=== PATIENT | female | born 1975 | race African-American/Black ===

== ENCOUNTER 2019-04-24 10:17 | Emergency (ER) | payer OTHER ==
[~2019-04-24] VITALS: Ht 162.6 cm; Wt 90.7 kg
[2019-04-24 10:48] LABS: ABSOLUTE NEUTROPHILS 5.2 thou/uL (1.4-8.2); BASOPHILS 0.3 % (0.0-2.0); EOSINOPHILS 1.6 % (0.0-3.0); HEMOGLOBIN 12.9 gm/dL (12.0-15.0); LYMPHOCYTES 23.7 % (24.0-44.0); MCH 29.5 pg (26.0-34.0); MCHC 32.3 g/dL (28.0-37.0); MCV 91.3 fL (80.0-100.0); PLATELET COUNT 290 thou/uL (150-400); POLYS 70.4 % (36.0-66.0); RBC 4.38 mil/uL (4.20-5.00); RDW 13.8 % (10.5-14.5); WBC 7.4 thou/uL (4.0-11.0)
[2019-04-24 10:58] LABS: ANION GAP 12 mmol/L (7-16); BUN 8 mg/dL (7-18); CALCIUM 9.4 mg/dL (8.5-10.1); CHLORIDE 102 mmol/L (98-107); CO2 25 mmol/L (21-32); GLUCOSE 192 mg/dL (74-106); POTASSIUM 3.6 mmol/L (3.5-5.1); SODIUM 139 mmol/L (136-145)
[2019-04-24 11:08] LABS: ALBUMIN 4.2 g/dL (3.4-5.0); MAGNESIUM 1.7 mg/dL (1.8-2.4); SGOT 31 U/L (15-37); SGPT 53 U/L (30-65); TOTAL BILIRUBIN 0.5 mg/dL (<0.1-1.0); TOTAL PROTEIN 8.7 g/dL (6.4-8.2); TROPONIN-I <0.06 ng/mL (<0.06)
[2019-04-24] MEDS ORDERED: ONDANSETRON ODT8 MG PO (13:10)
[2019-04-24] MEDS ORDERED: PRILOSEC OTC20 MG PO (13:10)
[2019-04-24] MEDS ORDERED: TRAMADOL 50 MG50 MG PO (13:10)
[2019-04-24 13:55] VITALS: BP 162/91
--- NOTE | 2019-04-27 12:55 | EKG ---
[address] [address] ELECTROCARDIOGRAM REPORT Name: LEEANN SAMANO [id number] Admission: 04/24/19 Attend Phys: Discharge: 04/24/19 Date of : 73 Report #: [id number] THIS REPORT FOR: //name// [facility] ED Test Date: 2019-04-24 Test Time: 10:26:12 Pat Name: LEEANN SAMANO Department: Room: Gender: F Import/Export Specialist: LAINE : 1975 Requested By: Luke Pinedo Order Number: [id number] MD: Kirby Shook Measurements Intervals [place] Rate: 103 P: 31 [place]: 139 QRS: 16 QRSD: 75 T: 257 QT: 355 QTc: 465 Interpretive Statements Sinus tachycardia Nonspecific T abnormalities, diffuse leads No previous ECG available for comparison Electronically Signed On 04-27-2019 12:54:58 NEWSR[employer] INTERN by Kirby Shook [email or web address] <ELECTRONICALLY SIGNED> By: Kirby Shook MD 04/27/19 1254 1026 1026 Kirby Shook MD /KYLE
== END 2019-04-24 13:56 | disposition home or self-care (01) ==
LOC: ER 10:17
PROVIDERS: Emergency Medicine
DX: K21.9 Gastro-esophageal reflux disease without esophagitis (principal); R11.2 Nausea with vomiting, unspecified; M25.512 Pain in left shoulder; I10 Essential (primary) hypertension; Z98.84 Bariatric surgery status